=== PATIENT | female | born 1995 | race Caucasian/White ===

== ENCOUNTER 2023-05-19 07:14 | Emergency (ER) | payer OTHER, SELFPAY ==
[2023-05-19 07:41] VITALS: BP 101/71; PULSE 82; RESP 16; TEMP 36.4; O2SAT 97; BMI 29.8
[2023-05-19] MEDS: DOCUSATE SODIUM/BENZOCAINE 5 ML ENEMA PR (08:23)
--- NOTE | 2023-05-19 08:41 | ED_ITS ---
HPI - General Adult General Date Seen: 05/19/23 Chief complaint: Constipation Stated complaint: constipation Time Seen by Provider: 05/19/23 08:05 Source: patient Mode of arrival: ambulatory Limitations: no limitations History of Present Illness HPI narrative: Patient is a 28-year-old who reports a long history of problems with constipation, she says that people of mention in the past that she might have IBS -C but no one has ever recommended any kind of treatment and so she is not on any regular regimen for constipation. She has not had a bowel movement for 2 weeks, she has developed over the past 24 hours some abdominal cramping, she feels bloated and nauseated although she has not had any vomiting. She has tried multiple medications at home including an [id number] enema, but has not had any results. She has started to take MiraLax but does not take it chronically. No fevers, urinary symptoms, or other concerns. No prior abdominal surgeries. Related Data Home Medications Medication Instructions Recorded Confirmed bupropion HCl 150 mg 24 hr tablet, 150 mg PO QAM 05/19/23 05/19/23 extended release lamotrigine 100 mg tablet 100 mg PO DAILY 05/19/23 05/19/23 norethindrone (contraceptive) 0.35 0.35 mg PO DAILY 05/19/23 05/19/23 mg tablet Allergies Allergy/AdvReac Type Severity Reaction Status Date / Time Penicillins Allergy Intermediate Vomiting Verified 05/19/23 07:41 Review of Systems Status of ROS: Reports: 6 or more systems reviewed and unremarkable except as noted in History and below [facility] Social History Do you use any of these nicotine containing products: Vaping Products How often do you have a drink containing alcohol: monthly or less AUDIT-C Alcohol total score: 1 Non-prescribed substance use: denies use service: No Exam Narrative: Exam Narrative: Vital signs as noted above. In general, an alert, well-appearing patient. Head: Normocephalic, atraumatic. Eyes: Pupils are equal reactive. Extraocular movements are full. Conjunctivae are normal. ENT: Mucous membranes are moist. Neck: Supple without lymphadenopathy. Heart: Regular rate and rhythm. No murmur or rub. Lungs: Clear bilaterally. No increased work of breathing, crackles or wheezes. Abdomen: Soft and nontender. Extremities: Well perfused. No edema. No calf tenderness. Pulses intact. Neurologic: Patient is alert and oriented to person and place. Speech is fluent. Face is symmetric. Moves all extremities equally. Affect: Normal. Skin: Warm and dry. Well perfused. Const: Vital Signs, click to edit/add: Vital Signs - 24 hr 05/19/23 07:41 Temperature 97.6 F Pulse Rate [Pulse Oximeter] 82 Respiratory Rate 16 Blood Pressure [Ri ght Upper Arm] 101/71 Pulse Oximetry 97 Oxygen Delivery Me thod Room Air Documenting provider has reviewed patient's vital signs: yes Course Course ED Course: Will go ahead and give Enemeez, discussed a cleanout regimen with higher doses of MiraLax which might be beneficial for her followed by daily MiraLax. I do not think she needs additional workup at this time. Abdomen is benign, she is fairly clear that her only problem is that she has been unable to have bowel movement. After Enemeez she had liquid stool, feels improved and would prefer to go home which I think is reasonable. Discussed longer-term management of constipation with her, she may benefit from a more aggressive clean out regimen prior to starting daily MiraLax. Return for significant abdominal pain, fevers, vomiting or other worsening. Vital Signs Vital signs: Initial Vital Signs Temperature 97.6 F 05/19/23 07:41 Temperature Source Temporal Artery Scan 05/19/23 07:41 Pulse Rate 82 05/19/23 07:41 Pulse Rhythm Regular 05/19/23 07:41 Pulse Strength 3+ Normal 05/19/23 07:41 Respiratory Rate 16 05/19/23 07:41 Blood Pressure 101/71 05/19/23 07:41 Blood Pressure Mean 81 05/19/23 07:41 Blood Pressure Position Sitting 05/19/23 07:41 Pulse Oximetry 97 05/19/23 07:41 Oxygen Delivery Method Room Air 05/19/23 07:41 Vital Signs Temperature 97.6 F 05/19/23 07:41 Pulse Rate 82 05/19/23 07:41 Respiratory Rate 16 05/19/23 07:41 Blood Pressure 101/71 05/19/23 07:41 Pulse Oximetry 97 05/19/23 07:41 Oxygen Delivery Method Room Air 01/09/24 07:41 Temperature 97.6 F 05/19/23 07:41 Pulse Rate 82 05/19/23 07:41 Respiratory Rate 16 05/19/23 07:41 Blood Pressure 101/71 05/19/23 07:41 Pulse Oximetry 97 05/19/23 07:41 Oxygen Delivery Method Room Air 05/19/23 07:41 Medications Administered Medications: Discontinued Medications Generic Name Dose Route Start Last Admin Trade Name Suhail PRN Reason Stop Dose Admin Docusate Sodium/Benzocaine 5 ml 05/19/23 08:16 05/19/23 08:23 Docusate Sodium/Benzocaine 5 Ml Enema LA 05/19/23 08:17 5 ml ONCE ONE Administration Discharge Plan Discharge Clinical Impression: Constipation Patient Disposition: Home, Self-Care Condition: Improved Instructions: Constipation (DC) Additional Instructions: A good cleanout can be accomplished with about 250 mg of MiraLax in a total of 64 oz of Gatorade over a couple of hours. You will have frequent liquid stools after this, but it does allow you to reset, take daily MiraLax, and improve your constipation. Make sure you are getting a lot of fluid and increase your fiber intake as well. For severe pain, vomiting, fever or other worsening, return at any time to the emergency department. Prescriptions: No Action norethindrone (contraceptive) 0.35 mg tablet 0.35 mg PO DAILY lamotrigine 100 mg tablet 100 mg PO DAILY bupropion HCl 150 mg tablet extended release 24 hr 150 mg PO QAM Follow Up/Referrals: Celsa Stewart MD [Primary Care Provider] - Stand Alone Forms: [facility] Info Instructions
== END 2023-05-19 09:23 | disposition home or self-care (01) ==
PROVIDERS: Emergency Provider Emergency Medicine; PCP Family Medicine
DX: K59.00 Constipation, unspecified (principal)
CPT/HCPCS: 99283; A9270